=== PATIENT | female | born 1980 | race Caucasian/White ===

== ENCOUNTER 2016-12-28 18:13 | Emergency (ER) | payer SELFPAY ==
[~2016-12-28] VITALS: Ht 167.6 cm; Wt 49.9 kg
[~2016-12-28 18:13] MED LIST: ACET-2222 PO; ALPR.5T PO; AMOX500C2 PO; BSP10T PO; HYDR-3720 PO; HYDR-3874 PO; HYDR1CAP2 PO; IBP800T PO; LIDO20SO20 PO; MIRT30TA19 PO; MIRT45TA5 PO; NAPR-243 PO; ONDA4TAB8 PO; PENI500T PO; PRM25T PO; SULF1TAB38 PO; TRM50T PO
--- OUTSIDE RECORDS SUMMARY | 2016-12-28 18:19 | XMS REPORT | Continuity of Care Document ---
Author Author [facility] Organization [facility] Address Unknown Phone Unavailable Care Team Providers Care Linseed Oil Temperer Name Role Phone [facility] PCP Insurance Providers Payer Name Policy Number Subscriber Name Relationship Self Pay Arturo Pritchard 18 Self / Same As Patient Advance Directives Directive Response Recorded Date/Time Advance Directives Yes 07/07/14 10:16pm Health Care Power of Insurance Account Manager No 07/07/14 10:16pm Organ Donor No 07/07/14 10:16pm Resuscitation Status Full Code 07/07/14 10:16pm Problems Medical Problems Problem Onset Date Status Abdominal pain Unknown Active Nausea and vomiting Unknown Active Thrombophlebitis Unknown Active Anxiety Unknown Active Medications Medication Dose Route Sig Days/Qty Instructions Order Date Discontinued Date Status Naproxen 1 Each PO TID PRN 20 Qty FOR PAIN 05/13/11 09/10/11 Discontinued Penicillin V Potassium 1 Tab PO FOUR TIMES DAILY 40 Qty 05/13/1109/10 Discontinued Tramadol HCl 50 Mg PO Q4-6HOURS PRN 20 Qty FOR PAIN 05/13/11 09/10/11 Discontinued Amoxicillin 1 Each PO THREE TIMES A DAY 09/10/11 11/26/12 Discontinued Acetaminophen/Hydrocodone Bitart (Lorcet-Hd) 1 - 2 Each PO Q 4 - 6 HRS PRN 09/10/11 11/26/12 Discontinued Ibuprofen 800 Mg PO GIVE EVERY 6 HR ON SCHEDULE 20 Qty 10/14/11 12/30/ 12 Discontinued Lidocaine Hcl 20 Ml PO NEEDED 1 Qty 09/10/11 11/26/12 Discontinued Mirtazapine (Remeron) 1 Each PO BEDTIME 11/26/12 Active Alprazolam 1 Tab PO QID PRN 11/26/12 Active Amoxicillin 2 Each PO THREE TIMES A DAY 10 Days 11/26/12 07/14/13 Discontinued Acetaminophen/Codeine 1 Tab PO EVERY 4HRS PRN 10 Qty 11/26/12 Discontinued Mirtazapine 1 Each PO BEDTIME 07/14/13 07/14/13 Discontinued Buspirone HCl 3 Tab PO TWICE A DAY 90 Qty 07/14/13 12/13/13 Discontinued Acetaminophen/Hydrocodone Bitart 1 Ea PO Q 4 - 6 HRS PRN 14 Qty 10/29/13 Discontinued Acetaminophen/Hydrocodone Bitart 1 Ea PO Q 4 - 6 HRS PRN 20 Qty 10/29/13 Discontinued Promethazine HCl 1 Tab PO FOUR TIMES DAILY PRN NAUSEA 20 Qty 10/29/13 12/13/13 Discontinued Trimethoprim/Sulfamethoxazole 1 Ea PO TWICE A DAY 14 Qty FOR INFECTION 07/07/14 Discontinued Social History Social History Problem Response Recorded Date/Time Alcohol Use Denies Use 07/07/2014 10:16pm Recreational Drug Use No 07/07/2014 10:16pm Smoking Status Current Everyday Smoker 07/07/2014 10:16pm Query Response Start Date Stop Date Smoking Status Current Everyday Smoker Hospital Discharge Instructions No hospital discharge instructions. Plan of Care No plan of care. Functional Status No functional status results. Allergies, Adverse Reactions, Alerts Allergen Type Severity Reaction Status Last Updated tramadol HCl Adverse Reaction Mild vomiting Active 09/10/11 naproxen ([id number]) Adverse Reaction Mild vomiting Active 09/10/11 Immunizations No immunization records. Vital Signs Acute Vital Signs Vital Response Date/Time Temperature (Fahrenheit) 98.0 degrees F (97.6 - 99.5) Temperature (Calculated Celsius) 36.34038 degrees C (36.4 - 37.5) Temperature Source Temporal Pulse Rate (adult) 69 bpm (60 - 90) Respiratory Rate 18 bpm (12 - 24) O2 Sat by Pulse Oximetry 98 % (88 - 100) Blood Pressure 115/67 mm Hg Pain Pain Intensity 0 Height (Feet) 5 feet Height (Inches) 4 inches Height (Calculated Centimeters) 162.907745 cm Weight (Pounds) 105 pounds Weight (Calculated Kilograms) 47.617223 kilograms Calculated BMI 18.02 Results Test Source Date Result Interp. Ref. Range Comments Alanine Aminotransferase (ALT/SGPT) October 29, 2013 11:25am 18 U/L L 30-65 Albumin October 29, 2013 11:25am 4.2 G/DL N 3.4-5.0 Alkaline Phosphatase October 29, 2013 11:25am 127 U/L N 50-136 Amylase Level October 29, 2013 11:25am 68 U/L N 25-115 Aspartate Amino Transf (AST/SGOT) October 29, 2013 11:25am 15 U/L N 15- 37 Atypical Lymphocytes October 29, 2013 11:25am 5 % - BUN/Creatinine Ratio October 29, 2013 11:25am 9 - Band Neutrophils October 29, 2013 11:25am 1 % - Basophils # (Auto) October 29, 2013 11:25am 0.0 10^3/uL N 0.0-0.1 Basophils % (Manual) October 29, 2013 11:25am 0 % - Basophils (%) (Auto) October 29, 2013 11:25am 0 % N 0-10 Blood Urea Nitrogen October 29, 2013 11:25am 9 MG/DL N 7-18 Calcium Level October 29, 2013 11:25am 9.4 MG/DL N 8.5-10.1 Carbon Dioxide Level October 29, 2013 11:25am 23 MMOL/L N 21-32 Chloride Level October 29, 2013 11:25am 106 MMOL/L N 101-110 Creatinine October 29, 2013 11:25am 1.0 MG/DL N 0.6-1.3 Eosinophils # (Auto) October 29, 2013 11:25am 0.0 10^3/uL N 0.0-0.3 Eosinophils % (Manual) October 29, 2013 11:25am 0 % - Eosinophils (%) (Auto) October 29, 2013 11:25am 0 % N 0-10 Glucose Level October 29, 2013 11:25am 122 MG/DL H 74-106 Hematocrit October 29, 2013 11:25am 46 % N 35-52 Hemoglobin October 29, 2013 11:25am 16.3 G/DL H 11.5-16.0 Lipase October 29, 2013 11:25am 100 U/L N 73-393 Lymphocytes # (Auto) October 29, 2013 11:25am 1.5 X 10^3 N 1.0-4.0 Lymphocytes % (Manual) October 29, 2013 11:25am 7 % - Lymphocytes (%) (Auto) October 29, 2013 11:25am 7 % L 12-44 Magnesium Level October 29, 2013 11:25am 1.9 MG/DL N 1.8-2.4 Mean Corpuscular Hemoglobin October 29, 2013 11:25am 32 PG N 25-34 Mean Corpuscular Hemoglobin Concent October 29, 2013 11:25am 36 G/DL N 32-36 Mean Corpuscular Volume October 29, 2013 11:25am 90 FL N 80-99 Mean Platelet Volume October 29, 2013 11:25am 10.4 FL N 7.4-10.4 Monocytes # (Auto) October 29, 2013 11:25am 0.7 X 10^3 N 0.0-1.0 Monocytes % (Manual) October 29, 2013 11:25am 1 % - Monocytes (%) (Auto) October 29, 2013 11:25am 3 % N 0-12 Neutrophils # (Auto) October 29, 2013 11:25am 18.7 X 10^3 H 1.8-7.8 Neutrophils % (Manual) October 29, 2013 11:25am 86 % - Neutrophils (%) (Auto) October 29, 2013 11:25am 89 % H 42-75 Platelet Count October 29, 2013 11:25am 252 10^3/uL N 130-400 Potassium Level October 29, 2013 11:25am 3.8 MMOL/L N 3.6-5.0 Red Blood Count October 29, 2013 11:25am 5.11 10^6/uL N 4.35-5.85 Red Cell Distribution Width October 29, 2013 11:25am 13.3 % N 10.0- 14.5 Serum Test, Qualitative October 29, 2013 11:25am NEGATIVE - Sodium Level October 29, 2013 11:25am 140 MMOL/L N 135-145 Total Bilirubin October 29, 2013 11:25am 0.6 MG/DL N 0.0-1.0 Total Protein October 29, 2013 11:25am 8.1 G/DL N 6.4-8.2 Urine Bacteria October 29, 2013 1:12pm NEGATIVE /HPF - Has specimen been collected/obtained? YSpecimen Description CLEAN CATCH Urine Bilirubin October 29, 2013 1:12pm NEGATIVE - Has specimen been collected/obtained? YSpecimen Description CLEAN CATCH Urine Casts October 29, 2013 1:12pm NONE /LPF - Has specimen been collected/obtained? YSpecimen Description CLEAN CATCH Urine Clarity October 29, 2013 1:12pm CLEAR - Has specimen been collected/obtained? YSpecimen Description CLEAN CATCH Urine Color October 29, 2013 1:12pm YELLOW - Has specimen been collected/obtained? YSpecimen Description CLEAN CATCH Urine Crystals October 29, 2013 1:12pm NONE /LPF - Has specimen been collected/obtained? YSpecimen Description CLEAN CATCH Urine Culture Indicated October 29, 2013 1:12pm NO - Has specimen been collected/obtained? YSpecimen Description CLEAN CATCH Urine Glucose (UA) October 29, 2013 1:12pm 4+ H - Has specimen been collected/obtained? YSpecimen Description CLEAN CATCH Urine Ketones October 29, 2013 1:12pm 2+ H - Has specimen been collected/obtained? YSpecimen Description CLEAN CATCH Urine Leukocyte Esterase October 29, 2013 1:12pm 1+ H - Has specimen been collected/obtained? YSpecimen Description CLEAN CATCH Urine Mucus October 29, 2013 1:12pm SMALL /LPF H - Has specimen been collected/obtained? YSpecimen Description CLEAN CATCH Urine Nitrite October 29, 2013 1:12pm NEGATIVE - Has specimen been collected/obtained? YSpecimen Description CLEAN CATCH Urine Protein October 29, 2013 1:12pm NEGATIVE - Has specimen been collected/obtained? YSpecimen Description CLEAN CATCH Urine RBC October 29, 2013 1:12pm RARE /HPF - Has specimen been collected/obtained? YSpecimen Description CLEAN CATCH Urine Specific [place] October 29, 2013 1:12pm 1.010 L - Has specimen been collected/obtained? YSpecimen Description CLEAN CATCH Urine Squamous Epithelial Cells October 29, 2013 1:12pm 5-10 /HPF - Has specimen been collected/obtained? YSpecimen Description CLEAN CATCH Urine Urobilinogen October 29, 2013 1:12pm NORMAL MG/DL - Has specimen been collected/obtained? YSpecimen Description CLEAN CATCH Urine WBC October 29, 2013 1:12pm RARE /HPF - Has specimen been collected/obtained? YSpecimen Description CLEAN CATCH Urine pH October 29, 2013 1:12pm 6 - Has specimen been collected/ obtained? YSpecimen Description CLEAN CATCH White Blood Count October 29, 2013 11:25am 20.9 10^3/uL H 4.3-11.0 Estimat Glomerular Filtration Rate October 29, 2013 11:25am > 60 - GFR INTERPRETIVE DATA UNITS FOR ESTIMATED GFR (eGFR): mL/min/1.73 M2 REFERENCE RANGE FOR ESTIMATED GFR (eGFR) eGFR NORMAL eGFR >60 MODERATELY DECREASED eGFR 30-59 SEVERLY DECREASED eGFR 15-29 KIDNEY FAILURE <15 (OR DIALYSIS) Blood Morphology Comment October 29, 2013 11:25am NORMAL - Urine RBC (Auto) October 29, 2013 1:12pm 1+ H - Has specimen been collected/obtained? YSpecimen Description CLEAN CATCH Procedures No known history of procedures. Encounters Encounter Location Date/Time Departed Emergency Room [facility] 07/07/14 10:07pm Recent Diagnosis
[2016-12-28] MEDS ORDERED: RX-ONDANSETRON 4 MG ODT (ZOFRAN) PPK #4 PO STA (18:58)
--- NOTE | 2016-12-28 18:58 | ED EENT ---
History of Present Illness General Chief Complaint: Dental Problems/Pain Stated Complaint: POST DENTAL OP/PAIN/VOMITING Nursing Triage Note: C/O DENTAL PAIN WITN NAUSEA. PT HAD SIX TEETH PULLED AT [facility] TODAY. PT THINKS THE HYDROCODONE PRESCRIBED IS MAKING HER SICK. Source: patient History of Present Illness Time seen by provider: 18:32 Initial Comments PT STATES SHE HAD 6 LOWER TEETH PULLED THIS AFTER NOON AT [facility] WAS OUT OF CLINIC BY 1545, AND FILLED RX FOR HYDROCODONE AND TOOK FIRST ONE AT 1615 STATES THE HYDROCODONE IS MAKING HER SICK AND HAS VOMITED X 2 SINCE TAKING IT. SHE STATES SHE HAS TAKEN IT BEFORE AND IT MADE HER SICK THEN ALSO--SHE STATES " I CAN'T TAKE THEM" PT DOES NOT HAVE THE GAUZE ON GUMS SHE WAS INSTRUCTED TO DO, AND IS HAVING SOME MILD DIFFUSE OOZING OF BLOOD FROM GUMS HAD 4 OTHER LOWER TEETH REMOVED 2 WEEKS AGO AND WAS NOT GIVEN ANYTHING FOR PAIN AT THAT TIME--SHE STATES THAT WAS NOT BAD, BECAUSE "THEY DIDN'T HAVE TO DIG ANY OF THOSE OUT LIKE THEY DID TODAY" PT STATES SHE "CAN'T TAKE NSAIDS BECAUSE THEY DO THE SAME THING" AND STATES "ULTRAM NEVER WORKS" AND "WANTS SOMETHING ELSE" FOR PAIN PCP:[facility] Allergies and Home Medications Allergies Coded Allergies: naproxen (Verified Adverse Reaction, Mild, vomiting, 09/10/11) tramadol HCl (Verified Adverse Reaction, Mild, vomiting, 09/10/11) Home Medications Alprazolam 0.5 Mg Tablet 1 TAB PO QID PRN (Reported) Hydrocodone/Acetaminophen 1 Each Tablet #15 1-2 EACH PO Q4H PRN PRN PAIN Prescribed by: KATHY BROWN on 10/10/152003 Ondansetron 4 Mg Tab.rapdis #8 4 MG PO Q4H PRN PRN NAUSEA Prescribed by: KATHY BROWN on 10/10/152003 Ondansetron 4 Mg Tab.rapdis #10 4 MG PO Q4H Prescribed by: AMY KEE on 12/28/16 1901 Review of Systems Constitutional: no symptoms reported Mouth: see HPI Gastrointestinal: see HPINo abdominal pain, nausea vomiting : No (HAS HAD BTL AND ENDOMETRIAL ABLATION) LMP: Nov 26, 2016 Neurological: No Symptoms Reported Past [id number]-[id number]-Tzbdwg Hx Patient Social History Alcohol Use: Occasionally Uses Recreational Drug Use: No (DENIES USE) Smoking Status: Current Everyday Smoker (1 PPD) Recent Foreign Travel: No Contact w/Someone Who Travel: No Recent Infectious Disease Expo: No Recent Hopitalizations: No Surgeries HX Surgeries: Yes (ENDOMETRIAL ABLATION) Surgeries: Gallbladder, Tubal Ligation Respiratory Hx Respiratory Disorders: No Cardiovascular Hx Cardiac Disorders: No Neurological Hx Neurological Disorders: No Reproductive System : No Hx Reproductive Disorders: Yes (S/P ENDOMETRIAL ABLATION) Female Reproductive Disorders: Menstrual Problems PM HEAD COOK History: Tubal Ligation Genitourinary Hx Genitourinary Disorders: No Gastrointestinal Hx Gastrointestinal Disorders: No Musculoskeletal Hx Musculoskeletal Disorders: Yes Musculoskeletal Disorders: Fractures Endocrine Hx Endocrine Disorders: No HEENT HX ENT Disorders: Yes (POOR DENTITION) Cancer Hx Cancer: No Psychosocial Hx Psychiatric Problems: Yes Behavioral Health Disorders: Sleep Difficulties, Anxiety, PTSD, Depression Integumentary HX Skin/Integumentary Disorder: No Blood Transfusions Hx Blood Disorders: No Physical Exam Vital Signs Vital Sign - Last 12Hours 12/28/16 18:33 Temp 98.5 Pulse 70 Resp 16 B/P 144/106 Pulse Ox 98 O2 Delivery Ambu-Bag General Appearance: WD/WN no apparent distress other (CONSTANTLY SPITTING OUT SALIVA MIXED WITH BLOOD, SOMEWHAT DRAMATIC) Eyes: bilateral eye EOMI, bilateral eye PERRL Nose: normal inspection Mouth/Throat: other (NO REMAINING TEETH ON LOWER GUMS. SITE OF EXTRACTIONS 2 WEEKS AGO ON THE RIGHT ARE ALL HEALING WELL WITHOUT SIGNS OF INFECTION. EXTRACTION SITES ON LEFT FROM TODAY ALL WITH MILD OOZING OF BLOOD. REMAINING TOP TEETH ALL WITH VARYING DEGREES OF DECAY) Neck: normal inspection Cardiovascular: regular rate, rhythm no murmur Respiratory: normal breath sounds Neurologic/Psychiatric: employee training specialist II-XII nml as tested no motor/sensory deficits alert oriented x 3 Skin: normal color warm/dry tattoos/piercings Progress/Results/Core Measures Results/Orders My Orders Orders-AMY KEE DO Ondansetron Oral Dissolve Tab (Zofran (12/28/16 19:00) Ketorolac Injection (Toradol Injection) (12/28/16 19:00) Rx-Ondansetron Po (Rx-Zofran Po) (12/28/16 18:58) Medications Given in ED Current Medications Medications Dose Ordered Sig/Santino Route Start Time Stop Time Status Last Admin Dose Admin Ketorolac Tromethamine 60 mg ONCE ONCE IM 12/28/16 19:00 12/28/16 19:01 DC 12/28/16 19:07 60 MG Ondansetron HCl 8 mg ONCE ONCE PO 12/28/16 19:00 12/28/16 19:01 DC 12/28/16 19:07 8 MG Vital Signs/I&O Vital Sign - Last 12Hours 12/28/16 12/28/16 12/28/16 18:33 19:07 19:15 Temp 98.5 98.5 98.5 Pulse 70 70 Resp 16 16 B/P 144/106 Pulse Ox 98 98 O2 Delivery Ambu-Bag Blood Pressure Mean: 119 Progress Note : Progress Note ADVISED PT THAT I WOULD GIVE HER NAUSEA MEDICATION SO SHE COULD HOPEFULLY TOLERATE HER PAIN MEDICATION, SHE HAS REPORTED THAT SHE CANNOT TAKE ULTRAM OR ORAL NSAIDS GIVEN SHOT OF TORADOL AND ZOFRAN ODT WITH IMPROVEMENT IN PAIN AND EASING OF NAUSEA. NO VOMITING DURING ER STAY PT ADVISED TO REPLACE GAUZE ON EXTRACTION SITES TO REDUCE BLEEDING WELL REDUCE PAIN Departure Impression Impression: Primary Impression: NAUSEA AND VOMITING DUE TO MEDICATION Additional Impression: POST DENTAL EXTRACTION PAIN Disposition: 01 HOME, SELF-CARE Condition: Stable Departure-Patient Inst. Referrals: [facility] (PCP/Family) Primary Care Physician Patient Instructions: Dental Pain (DC), Postoperative Pain (DC) Add. Discharge Instructions: FOLLOW ALL INSTRUCTIONS GIVEN TO YOU BY DENTIST FOLLOW UP WITH [facility] TOMORROW FOR FURTHER CARE All discharge instructions reviewed with patient and/or family. Voiced understanding. Scripts Ondansetron (Zofran Odt)4 Mg Tab.rapdis4 Mg PO Q4H Nausea/Vomiting #10 TAB Prov:AMY KEE DO 12/28/16 AMY KEE DO Dec 28, 2016 18:58
[2016-12-28] MEDS ORDERED: KETOROLAC 60 MG/2 ML VIAL IM ONE (19:00)
[2016-12-28] MEDS ORDERED: ONDANSETRON 4 MG (ZOFRAN) ORAL DISSOLVE TAB PO ONE (19:00)
[2016-12-28] MEDS ORDERED: ONDA4TAB8 PO (19:01)
[2016-12-28 19:15] VITALS: BP 132/90
== END 2016-12-28 19:15 | disposition home or self-care (01) ==
LOC: EDUNIT# 18:13 → ER 18:15
DX: R11.2 Nausea with vomiting, unspecified (principal); K08.409 Partial loss of teeth, unspecified cause, unspecified class; Z98.890 Other specified postprocedural states; F17.210 Nicotine dependence, cigarettes, uncomplicated
CPT/HCPCS: 96372; 99282

== ENCOUNTER 2018-06-18 17:14 | Emergency (ER) | payer SELFPAY ==
[~2018-06-18] VITALS: Ht 162.6 cm; Wt 49.9 kg
[~2018-06-18 17:14] MED LIST changes: +HYDR-3870 PO; -HYDR-3874 PO
--- OUTSIDE RECORDS SUMMARY | 2018-06-18 18:09 | XMS REPORT ---
Author Author ADRIANA ABBASI [facility] Address Unknown Care Team Providers Care Speech Communication Instructor Name Role Phone ADRIANA ABBASI Unavailable PROBLEMS Type Condition ICD9-CM Code UGF19-QU Code Onset Dates Condition Status SNOMED Code Problem Dental examination Z01.20 Active 306937130 Problem Weight loss R63.4 Active 711787311 Problem Gingivitis K05.10 Active 01988421 Problem Constipation, unspecified constipation type K59.00 Active 37109164 ALLERGIES No Information SOCIAL HISTORY Never Assessed PLAN OF CARE Activity Details Follow Up prn Reason:TE REMAINING UPPER TEETH VITAL SIGNS MEDICATIONS Unknown Medications RESULTS No Results PROCEDURES Procedure Date Ordered Result Body Site Dental no charge Dec 30, 2016 IMMUNIZATIONS No Known Immunizations MEDICAL (GENERAL) HISTORY Type Description Date Medical History PTSD Medical History anxiety Surgical History tubal ligation Surgical History cholecystectomy
--- OUTSIDE RECORDS SUMMARY | 2018-06-18 18:09 | XMS REPORT ---
Author Author ADRIANA ABBASI [facility] Address Unknown Care Team Providers Care Auto Engine Mechanic Name Role Phone ADRIANA ABBASI Unavailable PROBLEMS Type Condition ICD9-CM Code [id number] Code Onset Dates Condition Status SNOMED Code Problem Dental examination Z01.20 Active 985616095 Problem Weight loss R63.4 Active 295077749 Problem Gingivitis K05.10 Active 38413704 Problem Constipation, unspecified constipation type K59.00 Active 58558397 ALLERGIES Substance Reaction Event Type Date Status naproxen Unknown Non Drug Allergy Nov, Active SOCIAL HISTORY No smoking Hx information available PLAN OF CARE VITAL SIGNS MEDICATIONS Unknown Medications RESULTS No Results PROCEDURES Procedure Date Ordered Related Diagnosis Body Site Dental no charge Dec 23, 2016 IMMUNIZATIONS No Known Immunizations
--- OUTSIDE RECORDS SUMMARY | 2018-06-18 18:09 | XMS REPORT ---
Author Author ADRIANA ABBASI Organization [facility] Address Unknown Care Team Providers Care Roller Skater Name Role Phone ADRIANA ABBASI Unavailable PROBLEMS Type Condition ICD9-CM Code QXC87-UI Code Onset Dates Condition Status SNOMED Code Problem Dental examination Z01.20 Active 052569958 Problem Weight loss R63.4 Active 004973994 Problem Gingivitis K05.10 Active 90155459 Problem Constipation, unspecified constipation type K59.00 Active 91225269 ALLERGIES Substance Reaction Event Type Date Status naproxen Unknown Non Drug Allergy Dec, Active SOCIAL HISTORY Never Assessed PLAN OF CARE Activity Details Follow Up prn Reason:te remaining uppers VITAL SIGNS Blood pressure systolic 121 mmHg 2017-01-04 Blood pressure diastolic 83 mmHg 2017-01-04 MEDICATIONS Medication Instructions Dosage Frequency Start Date End Date Duration Status Zofran ODT 8 mg take 1 tablet by Oral route every 8 hoursPRNPlace on tongue and allow to dissolve. Oct, Active Hydrocodone-Acetaminophen 10-325 mg take 1 tablet by Oral route 2 times per day as needed for pain for 15 PRN Jun, Active Mirtazapine 30 mg 1.5 Tablet by Oral route 1 time per day Oct, Active Xanax 0.5 mg 1 Tablet by Oral route 4 times per day Oct, Active Bowman 5-325 MG Orally every 6 hrs 1 tablet as needed 6h 4 days Active Motrin 800 mg Orally 3 times a day prn rib pain 1 tablet May, Active RESULTS No Results PROCEDURES Procedure Date Ordered Result Body Site TX COMPS - UNUSUL CIRCUMSTANCES RPT Jan 04, 2017 IMMUNIZATIONS No Known Immunizations MEDICAL (GENERAL) HISTORY Type Description Date Medical History PTSD Medical History anxiety Surgical History tubal ligation Surgical History cholecystectomy
--- OUTSIDE RECORDS SUMMARY | 2018-06-18 18:09 | XMS REPORT ---
Author Author ALICIA Castano [facility] Address Unknown Care Team Providers Care Auto Specialty Services Manager Name Role Phone ALICIA Castano Unavailable PROBLEMS Type Condition ICD9-CM Code ERJ13-DO Code Onset Dates Condition Status SNOMED Code Problem Dental examination Z01.20 Active 294985582 Problem Weight loss R63.4 Active 545181569 Problem Gingivitis K05.10 Active 65943034 Problem Constipation, unspecified constipation type K59.00 Active 67195367 ALLERGIES Substance Reaction Event Type Date Status naproxen Unknown Non Drug Allergy Sep, Active SOCIAL HISTORY No smoking Hx information available PLAN OF CARE Activity Details Follow Up prn Reason:te VITAL SIGNS Height 66 in 2016-10-20 Blood pressure systolic 113 mmHg 2016-10-20 Blood pressure diastolic 44 mmHg 2016-10-20 MEDICATIONS Unknown Medications RESULTS No Results PROCEDURES Procedure Date Ordered Related Diagnosis Body Site COMP ORAL EVALUATION - NEW/EST PT Oct 20, 2016 PANORAMIC FILM SEE ALSO CODE 20433 Oct 20, 2016 EXTRAC ERUPTED TOOTH/EXPOSED ROOT Oct 20, 2016 IMMUNIZATIONS No Known Immunizations
--- OUTSIDE RECORDS SUMMARY | 2018-06-18 18:09 | XMS REPORT ---
Author Author DELONTE HERR Organization [facility] Address [address] [place] [address] Care Team Providers Care Pediatric Intensive Physician Name Role Phone DELONTE HERR Unavailable PROBLEMS Type Condition ICD9-CM Code XGG95-EP Code Onset Dates Condition Status SNOMED Code Problem Dental examination Z01.20 Active 562476268 Problem Weight loss R63.4 Active 663814787 Problem Gingivitis K05.10 Active 50239080 Problem Constipation, unspecified constipation type K59.00 Active 11057425 ALLERGIES Substance Reaction Event Type Date Status naproxen Unknown Non Drug Allergy Jan, Active SOCIAL HISTORY Never Assessed PLAN OF CARE Activity Details Follow Up prn Reason: VITAL SIGNS Height 66 in 2017-02-07 Weight 107.8 lbs 2017-02-07 Temperature 98.2 degrees Fahrenheit 2017-02-07 Heart Rate 88 bpm 2017-02-07 Respiratory Rate 18 2017-02-07 BMI 17.40 kg/m2 2017-02-07 Blood pressure systolic 113 mmHg 2017-02-07 Blood pressure diastolic 68 mmHg 2017-02-07 MEDICATIONS Unknown Medications RESULTS No Results PROCEDURES No Known procedures IMMUNIZATIONS No Known Immunizations MEDICAL (GENERAL) HISTORY Type Description Date Medical History PTSD Medical History anxiety Surgical History tubal ligation Surgical History cholecystectomy
--- OUTSIDE RECORDS SUMMARY | 2018-06-18 18:09 | XMS REPORT ---
Author Author ALICIA Castano [facility] Address Unknown Care Team Providers Care 1St Pressman Name Role Phone ALICIA Castano Unavailable PROBLEMS Type Condition ICD9-CM Code XWT61-ES Code Onset Dates Condition Status SNOMED Code Problem Dental examination Z01.20 Active 474672268 Problem Weight loss R63.4 Active 729404516 Problem Gingivitis K05.10 Active 81972312 Problem Constipation, unspecified constipation type K59.00 Active 91140544 ALLERGIES Substance Reaction Event Type Date Status naproxen Unknown Non Drug Allergy Nov, Active SOCIAL HISTORY No smoking Hx information available PLAN OF CARE Activity Details Follow Up prn Reason:multi te VITAL SIGNS Height 66 in 2016-12-14 Blood pressure systolic 112 mmHg 2016-12-14 Blood pressure diastolic 68 mmHg 2016-12-14 MEDICATIONS Unknown Medications RESULTS No Results PROCEDURES Procedure Date Ordered Related Diagnosis Body Site EXTRAC ERUPTED TOOTH/EXPOSED ROOT Dec 14, 2016 EXTRAC ERUPTED TOOTH/EXPOSED ROOT Dec 14, 2016 EXTRAC ERUPTED TOOTH/EXPOSED ROOT Dec 14, 2016 EXTRAC ERUPTED TOOTH/EXPOSED ROOT Dec 14, 2016 EXTRAC ERUPTED TOOTH/EXPOSED ROOT Dec 14, 2016 EXTRAC ERUPTED TOOTH/EXPOSED ROOT Dec 14, 2016 IMMUNIZATIONS No Known Immunizations
--- OUTSIDE RECORDS SUMMARY | 2018-06-18 18:09 | XMS REPORT ---
Author Author JOSE ALEJANDRO STEEN Organization [employer] Address Unknown Phone Unavailable Care Team Providers Care Valve Fitter Name Role Phone JOSE ALEJANDRO STEEN CP Unavailable Allergies, Adverse Reactions, Alerts Substance Reaction Event Type N.K.D.A. Info Not Available Non Drug Allergy Problems Problem Type Condition Code Onset Dates Condition Status Problem Fever, unspecified 780.60 Active Problem Nausea with vomiting 787.01 Active Problem Intestinal infection due to other organism, NEC 008.8 Active Assessment Open fracture of tooth, initial encounter S02.5XXB Active Problem Closed fracture of lateral malleolus 824.2 Active Assessment Tooth pain K08.89 Active Medications Medication Code System Code Instructions Start Date End Date Status Dosage Clindamycin HCl [facility] [address]-07 300 MG Orally every 8 hrs Sep 23, 2016 Oct 03, 2016 1 capsules [place] [facility] [address]-02 5-325 MG Orally every 6 hrs Sep 23, 2016 Oct 07, 2016 1 tablet as needed for tooth pain Motrin [facility] [address]-39 800 mg Orally 3 times a day prn rib pain June 16, 2015 1 tablet Xanax [facility] [address]-42 0.5 mg Nov 17, 2012 1 Tablet by Oral route 4 times per day Procedures Procedure Coding System Code Date Office Visit, Est Pt., Level 3 CPT-4 79538 Sep 23, 2016 Vital Signs Date/Time: Sep 23, 2016 Cardiac Monitoring Heart Rate 80 bpm Weight 110 lbs Height 66 in BMI 17.75 Index Blood Pressure Diastolic 74 mmHg Blood Pressure Systolic 102 mmHg Results No Known Results Summary Purpose [employer] Submission
--- OUTSIDE RECORDS SUMMARY | 2018-06-18 18:09 | XMS REPORT ---
Author Author ADRIANA ABBASI Organization [facility] Address Unknown Care Team Providers Care Motor Equipment Captain Name Role Phone ADRIANA ABBASI Unavailable PROBLEMS Type Condition ICD9-CM Code [id number] Code Onset Dates Condition Status SNOMED Code Problem Dental examination Z01.20 Active 758612199 Problem Weight loss R63.4 Active 996655123 Problem Gingivitis K05.10 Active 54693843 Problem Constipation, unspecified constipation type K59.00 Active 45680887 ALLERGIES Substance Reaction Event Type Date Status naproxen Unknown Non Drug Allergy Nov, Active SOCIAL HISTORY No smoking Hx information available PLAN OF CARE Activity Details Follow Up 1 Week Reason:Dry socket follow-up/Suture removal. PA will most likely need to be taken at next visit. VITAL SIGNS Height 66 in 2016-12-16 Blood pressure systolic 126 mmHg 2016-12-16 Blood pressure diastolic 89 mmHg 2016-12-16 MEDICATIONS Medication Instructions Dosage Frequency Start Date End Date Duration Status Critz 5-325 MG Orally every 6 hrs 1 tablet as needed 6h 4 days Active Azithromycin 250 MG Orally Once a day 2 tablets on the first day, then 1 tablet daily for 4 days 24h Nov, 24 Nov, 2016 5 day(s) Active RESULTS No Results PROCEDURES Procedure Date Ordered Related Diagnosis Body Site LTD ORAL EVALUATION - PROBLEM FOCUS Dec 16, 2016 INTRAORL-PERIAPICAL 1 FILM 97555 Dec 16, 2016 IMMUNIZATIONS No Known Immunizations
--- OUTSIDE RECORDS SUMMARY | 2018-06-18 18:09 | XMS REPORT ---
Author Author ALICIA Castano [facility] Address Unknown Care Team Providers Care Food Production Machine Operator Name Role Phone tamikoMeghaALICIA GRAY Unavailable PROBLEMS Type Condition ICD9-CM Code KBG46-IK Code Onset Dates Condition Status SNOMED Code Problem Dental examination Z01.20 Active 466162464 Problem Weight loss R63.4 Active 122324055 Problem Gingivitis K05.10 Active 93980198 Problem Constipation, unspecified constipation type K59.00 Active 01269499 ALLERGIES Substance Reaction Event Type Date Status naproxen Unknown Non Drug Allergy Nov, Active SOCIAL HISTORY No smoking Hx information available PLAN OF CARE Activity Details Follow Up prn Reason:1.5 hr multi te VITAL SIGNS Height 66 in 2016-12-28 Blood pressure systolic 110 mmHg 2016-12-28 Blood pressure diastolic 68 mmHg 2016-12-28 MEDICATIONS Medication Instructions Dosage Frequency Start Date End Date Duration Status [place] 5-325 MG Orally every 6 hrs 1 tablet as needed 6h 4 days Active [place] 5-325 MG Orally every 6 hrs 1 tablet as needed 6h Nov, 4 Dec 4 days Active Zofran ODT 8 mg take 1 tablet by Oral route every 8 hoursPRNPlace on tongue and allow to dissolve. Oct, Active Xanax 0.5 mg 1 Tablet by Oral route 4 times per day Oct, Active Mirtazapine 30 mg 1.5 Tablet by Oral route 1 time per day Oct, Active Hydrocodone-Acetaminophen 10-325 mg take 1 tablet by Oral route 2 times per day as needed for pain for 15 PRN Jun, Active Motrin 800 mg Orally 3 times a day prn rib pain 1 tablet May, Active RESULTS No Results PROCEDURES Procedure Date Ordered Related Diagnosis Body Site EXTRAC ERUPTED TOOTH/EXPOSED ROOT Dec 28, 2016 EXTRAC ERUPTED TOOTH/EXPOSED ROOT Dec 28, 2016 EXTRAC ERUPTED TOOTH/EXPOSED ROOT Dec 28, 2016 EXTRAC ERUPTED TOOTH/EXPOSED ROOT Dec 28, 2016 EXTRAC ERUPTED TOOTH/EXPOSED ROOT Dec 28, 2016 EXTRAC ERUPTED TOOTH/EXPOSED ROOT Dec 28, 2016 IMMUNIZATIONS No Known Immunizations
--- OUTSIDE RECORDS SUMMARY | 2018-06-18 18:09 | XMS REPORT ---
Author Author ADRIANA ABBASI [facility] Address Unknown Care Team Providers Care Flash Developer Name Role Phone ADRIANA ABBASI Unavailable PROBLEMS Type Condition ICD9-CM Code KCB95-TB Code Onset Dates Condition Status SNOMED Code Problem Dental examination Z01.20 Active 905815588 Problem Weight loss R63.4 Active 041058181 Problem Gingivitis K05.10 Active 62954225 Problem Constipation, unspecified constipation type K59.00 Active 33107891 ALLERGIES Substance Reaction Event Type Date Status naproxen Unknown Non Drug Allergy Dec, Active SOCIAL HISTORY Never Assessed PLAN OF CARE Activity Details Follow Up 6-8 Weeks Reason:complete denture impressions VITAL SIGNS Blood pressure systolic 109 mmHg 2017-01-13 Blood pressure diastolic 78 mmHg 2017-01-13 MEDICATIONS Medication Instructions Dosage Frequency Start Date End Date Duration Status Motrin 800 mg Orally 3 times a day prn rib pain 1 tablet May, Active [place] 5-325 MG Orally every 6 hrs 1 tablet as needed 6h 4 days Active Hydrocodone-Acetaminophen 10-325 mg take 1 tablet by Oral route 2 times per day as needed for pain for 15 PRN Jun, Active Mirtazapine 30 mg 1.5 Tablet by Oral route 1 time per day Oct, Active Valium 5 MG Orally 2 TABLETS 1 HR BEFORE APPOINTMENT 2 TABLETS THE NIGHT BEFORE TREATMENT Dec, Active Xanax 0.5 mg 1 Tablet by Oral route 4 times per day Oct, Active Zofran ODT 8 mg take 1 tablet by Oral route every 8 hoursPRNPlace on tongue and allow to dissolve. Oct, Active Acetaminophen-Codeine #3 300-30 MG Orally every 6 hrs 1 tablet as needed 6h Dec, Dec, 4 days Active RESULTS No Results PROCEDURES Procedure Date Ordered Result Body Site EXTRAC ERUPTED TOOTH/EXPOSED ROOT Jan 13, 2017 EXTRAC ERUPTED TOOTH/EXPOSED ROOT Jan 13, 2017 INTRAORL-PERIAPICAL 1 FILM 38513 Jan 13, 2017 EXTRAC ERUPTED TOOTH/EXPOSED ROOT Jan 13, 2017 EXTRAC ERUPTED TOOTH/EXPOSED ROOT Jan 13, 2017 EXTRAC ERUPTED TOOTH/EXPOSED ROOT Jan 13, 2017 EXTRAC ERUPTED TOOTH/EXPOSED ROOT Jan 13, 2017 EXTRAC ERUPTED TOOTH/EXPOSED ROOT Jan 13, 2017 EXTRAC ERUPTED TOOTH/EXPOSED ROOT Jan 13, 2017 EXTRAC ERUPTED TOOTH/EXPOSED ROOT Jan 13, 2017 EXTRAC ERUPTED TOOTH/EXPOSED ROOT Jan 13, 2017 IMMUNIZATIONS No Known Immunizations MEDICAL (GENERAL) HISTORY Type Description Date Medical History PTSD Medical History anxiety Surgical History tubal ligation Surgical History cholecystectomy
--- OUTSIDE RECORDS SUMMARY | 2018-06-18 18:10 | XMS REPORT | Continuity of Care Document ---
Author Author [facility] Address Unknown Phone Unavailable Allergies Active Description Code Type Severity Reaction Onset Reported/Identified Relationship to Patient Clinical Status Yes naproxen [id number] Drug Allergy Mild vomiting 09/10/2011 Yes tramadol HCl [id number] Drug Allergy Mild vomiting 09/10/2011 Medications There is no data. Problems Date Dx Coded Attending Type Code Diagnosis Diagnosed By 05/13/2011 Ot 521.00 05/13/2011 Ot 525.9 09/10/2011 Ot 521.00 UNSPEC DENTAL CARIES 09/10/2011 Ot 525.9 DENTAL DISORDER NOS 11/17/2012 CELIA MONTIEL DO 008.8 GASTROENTERITIS, VIRAL 11/17/2012 CELIA MONTIEL DO 780.60 FEVER, UNSPECIFIED 11/17/2012 CELIA MONTIEL DO 787.01 NAUSEA WITH VOMITING 11/17/2012 008.8 GASTROENTERITIS, VIRAL 11/17/2012 780.60 FEVER, UNSPECIFIED 11/17/2012 787.01 NAUSEA WITH VOMITING 11/17/2012 CELIA MONTIEL DO 008.8 GASTROENTERITIS, VIRAL 11/17/2012 CELIA MONTIEL DO 780.60 FEVER, UNSPECIFIED 11/17/2012 CELIA MONTIEL DO 787.01 NAUSEA WITH VOMITING 11/26/2012 Ot 461.9 ACUTE SINUSITIS NOS 11/26/2012 Ot 780.60 FEVER, UNSPECIFIED 11/26/2012 Ot 786.2 COUGH 07/14/2013 DELFINO ROSADO MD Ot 824.2 FX LATERAL MALLEOLUS-CL 07/14/2013 DELFINO ROSADO MD Ot 959.7 LOWER LEG INJURY NOS 07/14/2013 DELFINO ROSADO MD Ot E000.8 OTHER EXTERNAL CAUSE STATUS 07/14/2013 DELFINO ROSADO MD Ot E030 UNSPECIFIED ACTIVITY 07/14/2013 DELFINO ROSADO MD Ot E849.[address] NOS 07/14/2013 DELFINO ROSADO MD Ot E884.9 FALL-1 LEVEL TO [facility] NEC 07/16/2013 CHARLOTTE PUGA Ot V15.59 PERSONAL HISTORY OF OTHER INJURY 07/16/2013 CHARLOTTE PUGA Ot V54.89 OTHER ORTHOPEDIC AFTERCARE 07/19/2013 824.2 FRACTURE OF LATERAL MALLEOLUS CLOSED 07/19/2013 CELIA MONTIEL DO 824.2 FRACTURE OF LATERAL MALLEOLUS CLOSED 10/29/2013 DELFINO ROSADO MD Ot 787.01 NAUSEA WITH VOMITING 10/29/2013 DELFINO ROSADO MD Ot 789.00 ABDOMINAL PAIN, UNSPECIFIED SITE 12/13/2013 CHARLOTTE PUGA Ot 451.9 THROMBOPHLEBITIS NOS 07/08/2014 MONICA TALLEY, NATHALY Payne Ot 300.00 ANXIETY STATE NOS 10/10/2015 KEVIN TALLEY, KATHY Mcclure Ot F17.210 NICOTINE DEPENDENCE, CIGARETTES, UNCOMPL 10/10/2015 KEVIN TALLEY, KATHY Mcclure Ot K52.9 NONINFECTIVE GASTROENTERITIS AND COLITIS 10/10/2015 KEVIN TALLEY, KATHY Mcclure Ot R10.11 RIGHT UPPER QUADRANT PAIN 12/29/2016 VIDHYA DO, AMY K Ot F17.210 NICOTINE DEPENDENCE, CIGARETTES, UNCOMPL 12/29/2016 VIDHYA , AMY K Ot K08.409 PARTIAL LOSS OF TEETH, UNSPECIFIED CAUSE 12/29/2016 VIDHYA , AMY K Ot R11.2 NAUSEA WITH VOMITING, UNSPECIFIED 12/29/2016 VIDHYA DO AMY K Ot Z98.890 OTHER SPECIFIED POSTPROCEDURAL STATES Procedures Code Description [place] [address] INFLUENZA A & B (IN-HOUSE) 11/17/2012 OrthopedRandy Siegel 07/26/2013 16886 XRAY ANKLE L COMP MIN, 3 VIEWS 08/30/2013 Results Test Result Range CBC With Differential/Platelet - 03/03/17 15:45 WBC 9.4 x10E3/uL 3.4-10.8 RBC 4.95 x10E6/uL 3.77-5.28 Hemoglobin 15.4 g/dL 11.1-15.9 Hematocrit 45.5 % 34.0-46.6 MCV 92 fL 79-97 MCH 31.1 pg 26.6-33.0 MCHC 33.8 g/dL 31.5-35.7 RDW 13.2 % 12.3-15.4 Platelets 306 x10E3/uL 150-379 Neutrophils 56 % Lymphs 39 % Monocytes 5 % Eos 0 % Basos 0 % Neutrophils (Absolute) 5.2 x10E3/uL 1.4-7.0 Lymphs (Absolute) 3.7 x10E3/uL 0.7-3.1 Monocytes(Absolute) 0.5 x10E3/uL 0.1-0.9 Eos (Absolute) 0.0 x10E3/uL 0.0-0.4 Baso (Absolute) 0.0 x10E3/uL 0.0-0.2 Immature Granulocytes 0 % Immature Grans (Abs) 0.0 x10E3/uL 0.0-0.1 Comp. Metabolic Panel (14) - 03/03/17 15:45 Glucose, Serum 87 mg/dL 65-99 BUN 7 mg/dL 6-20 Creatinine, Serum 0.82 mg/dL 0.57-1.00 eGFR If NonAfricn Am 92 mL/min/1.73 >59 eGFR If Africn Am 106 mL/min/1.73 >59 BUN/Creatinine Ratio 9 9-23 Sodium, Serum 142 mmol/L 134-144 Potassium, Serum 4.8 mmol/L 3.5-5.2 Chloride, Serum 99 mmol/L 96-106 Carbon Dioxide, Total 27 mmol/L 18-29 Calcium, Serum 10.4 mg/dL 8.7-10.2 Protein, Total, Serum 7.5 g/dL 6.0-8.5 Albumin, Serum 4.9 g/dL 3.5-5.5 Globulin, Total 2.6 g/dL 1.5-4.5 A/G Ratio 1.9 1.2-2.2 Bilirubin, Total 0.5 mg/dL 0.0-1.2 Alkaline Phosphatase, S 92 IU/L 39-117 AST (SGOT) 41 IU/L 0-40 ALT (SGPT) 20 IU/L 0-32 CULTURE, GENITAL - 05/16/18 17:54 CULTURE, GENITAL SEE NOTE NRG SUREPATH PAP RFX HPV mRNA E6/E7 - 05/16/18 17:54 CLINICAL INFORMATION: NRG LMP: NRG PREV. PAP: NRG PREV. BX: NRG SOURCE: Cervix NRG STATEMENT OF ADEQUACY: NRG INTERPRETATION/RESULT: NRG SUCKER MACHINE OPERATOR: NRG COMMENT NRG Encounters ACCT No. Visit Date/Time Discharge Status Pt. Type Provider Facility Loc./Unit Complaint [id number] 08/30/2013 15:15:00 08/30/2013 23:59:59 CLS Outpatient CELIA MONTIEL DO [id number] 11/17/2012 08:30:00 11/17/2012 23:59:59 CLS Outpatient CELIA MONTIEL DO [id number] 07/19/2013 15:06:00 Document Registration [id number] 03/04/2017 07:05:00 Document Registration [id number] 05/16/2018 16:00:00 05/16/2018 23:59:59 CLS Outpatient AVA SALOMON [facility] [id number] 05/16/2018 16:00:00 Document Registration [id number] 12/28/2016 18:15:00 12/28/2016 19:15:00 DIS Outpatient AMY KEE DO Via [facility] ER POST DENTAL OP/PAIN/ VOMITING [id number] 10/10/2015 16:35:00 10/10/2015 21:27:00 DIS Emergency KEVIN TALLEY, KATHY Mcclure [facility] ER ABD PAIN;NAUSEA;DIARRHEA [id number] 07/07/2014 22:07:00 07/08/2014 00:14:00 DIS Emergency NATHALY ANDERSON MD [facility] ER ANXIETY ATTACK [id number] 12/13/2013 18:30:00 12/13/2013 22:19:00 DIS Emergency CHARLOTTE PUGA [facility] ER POSS FOREIGN BODY [id number] 10/29/2013 10:59:00 10/29/2013 15:39:00 DIS Emergency DELFINO ROSADO MD [facility] ER VOMITING,DIARRHEA [id number] 07/16/2013 10:21:00 07/16/2013 12:55:00 DIS Emergency CHARLOTTE PUGA [facility] ER WRAP FOOT [id number] 07/14/2013 16:43:00 07/14/2013 18:55:00 DIS Emergency ALONZO TALLEY, DELFINO Abraham [facility] ER L ANKLE HURTS [id number] 11/26/2012 13:24:00 Document Registration [id number] 09/10/2011 15:33:00 Document Registration [id number] 05/13/2011 16:48:00 Document Registration
--- OUTSIDE RECORDS SUMMARY | 2018-06-18 18:10 | XMS REPORT ---
Author Author NARCISAADRIANA SONG Idris [facility] Address Unknown Care Team Providers Care Metrologist Name Role Phone ADRIANA ABBASI Unavailable PROBLEMS Type Condition ICD9-CM Code PYK48-JI Code Onset Dates Condition Status SNOMED Code Problem Weight loss R63.4 Active 191390483 Problem Gingivitis K05.10 Active 68312775 Problem Constipation, unspecified constipation type K59.00 Active 00550076 ALLERGIES No Information ENCOUNTERS Encounter Location Date Diagnosis [facility] [address] [id number] May, Dental examination Z01.20 [facility] [address] [address] Feb, Dental examination Z01.20 [facility] [address] [id number] Feb, Dental examination Z01.20 [facility] [address] [address] Feb, Dental examination Z01.20 [facility] [address] [address] Feb, Gingivitis K05.10 ; Weight loss R63.4 and Fragmented bone T14.8 [facility] [address] [id number] Jan, Dental examination Z01.20 [facility] [address] [id number] Jan, Dental examination Z01.20 [facility] [id number] [place] [phone] Jan, Constipation, unspecified constipation type K59.00 [facility] [id number] [id number] 16 Dec, 2016 Dental caries K02.9 [facility] [id number] [place] [address] [id number] Dec, [facility] [address] [id number] [place] [address] [phone] Dec, Dental examination Z01.20 [facility] [id number] [place] [address] [phone] Dec, Dental examination Z01.20 [facility] [address] [id number] [place] [address] [phone] Nov, Dental caries K02.9 [facility] [address] [id number] [place] [address] [phone] Nov, Dental examination Z01.20 [facility] [id number] [place] [address] [phone] Nov, Dental examination Z01.20 [facility] [id number] [place] [address] [phone] Nov, Dental caries K02.9 [facility] [address] [address] Sep, Dental caries K02.9 and Dental examination Z01.20 [facility] [id number] [place] [address] Sep, Dental examination Z01.20 [facility] [id number] [place] [address] Aug, Tooth pain K08.89 and Open fracture of tooth, initial encounter S02.5XXB [facility] [id number] [place] [phone] May, Rib pain on left side 786.50 [facility] [id number] [place] [phone] Feb, [facility] [address] [address] Feb, [facility] [address] [address] Aug, [facility] [address] [address] Jun, [facility] [address] [address] Jun, [facility] [address] [place] [address] Jun, [facility] [address] [place] [address] Jun, [facility] [id number] [place] [phone] Jan, [facility] [address] [address] Oct, [facility] [id number] [address] Oct, [facility] [address] [address] Oct, [facility] [address] [address] Oct, [facility] [address] [address] Jul, [facility] [address] [address] May, IMMUNIZATIONS No Known Immunizations SOCIAL HISTORY Never Assessed REASON FOR VISIT Refill request PLAN OF CARE VITAL SIGNS MEDICATIONS Medication Instructions Dosage Frequency Start Date End Date Duration Status Valium 5 MG Orally 2 TABLETS 1 HR BEFORE APPOINTMENT 2 TABLETS THE NIGHT BEFORE TREATMENT Dec, Active RESULTS No Results PROCEDURES No Known procedures INSTRUCTIONS MEDICATIONS ADMINISTERED No Known Medications MEDICAL (GENERAL) HISTORY Type Description Date Medical History PTSD Medical History anxiety Surgical History tubal ligation Surgical History cholecystectomy
--- OUTSIDE RECORDS SUMMARY | 2018-06-18 18:10 | XMS REPORT ---
Author Author NARCISAADRIANA SONG Idris [facility] Address Unknown Care Team Providers Care Metal Grader Name Role Phone ADRIANA ABBASI Unavailable PROBLEMS Type Condition ICD9-CM Code MMD30-TV Code Onset Dates Condition Status SNOMED Code Problem Weight loss R63.4 Active 429408699 Problem Gingivitis K05.10 Active 68273073 Problem Constipation, unspecified constipation type K59.00 Active 08205471 ALLERGIES No Information ENCOUNTERS Encounter Location Date Diagnosis [facility] [address] [id number] May, Dental examination Z01.20 [facility] [address] [address] Feb, Dental examination Z01.20 [facility] [address] [id number] Feb, Dental examination Z01.20 [facility] [address] [address] Feb, Dental examination Z01.20 [facility] [address] [address] Feb, Gingivitis K05.10 ; Weight loss R63.4 and Fragmented bone T14.8 [facility] [address] [id number] Jan, Dental examination Z01.20 [facility] [address] [id number] Jan, Dental examination Z01.20 [facility] [id number] [place] [address] Jan, Constipation, unspecified constipation type K59.00 [facility] [id number] [id number] 16 Dec, 2016 Dental caries K02.9 [facility] [id number] [place] [id number] Dec, [facility] [address] [id number] [place] [address] [id number] Dec, Dental examination Z01.20 [facility] [address] [id number] [place] [id number] Dec, Dental examination Z01.20 [facility] [id number] [place] [address] [phone] Nov, Dental caries K02.9 [facility] [id number] [place] [address] [phone] Nov, Dental examination Z01.20 [facility] [id number] [place] [address] [id number] Nov, Dental examination Z01.20 [facility] [address] [id number] [place] [address] [id number] Nov, Dental caries K02.9 [facility] [address] [address] Sep, Dental caries K02.9 and Dental examination Z01.20 [facility] [id number] [place] [address] Sep, Dental examination Z01.20 [facility] [id number] [place] [address] Aug, Tooth pain K08.89 and Open fracture of tooth, initial encounter S02.5XXB [facility] [id number] [place] [address] May, Rib pain on left side 786.50 [facility] [id number] [place] [address] Feb, [facility] [address] [address] Feb, [facility] [address] [place] [address] Aug, [facility] [address], [place] [address] Jun, [facility] [address], [place] [address] Jun, [facility] [address], [place] [address] Jun, [facility] [address], [place] [address] Jun, [facility] [address], [place] [address] Jan, [facility] [address], [place] [address] Oct, [facility] [address] [address] Oct, [facility] [address] [address] Oct, [facility] [address] [id number] Oct, [facility] [id number] [address] Jul, [facility] [id number], [place] [address] May, IMMUNIZATIONS No Known Immunizations SOCIAL HISTORY Never Assessed REASON FOR VISIT IMPRESSIONS PLAN OF CARE VITAL SIGNS MEDICATIONS Unknown Medications RESULTS No Results PROCEDURES Procedure Date Ordered Result Body Site Billing Notes on claim June 17, 2017 INSTRUCTIONS MEDICATIONS ADMINISTERED No Known Medications MEDICAL (GENERAL) HISTORY Type Description Date Medical History PTSD Medical History anxiety Surgical History tubal ligation Surgical History cholecystectomy
[2018-06-18] MEDS ORDERED: RT-ALBUTEROL/IPRATROPIUM 3 ML (DUONEB) VIAL INH ONE (18:45)
--- NOTE | 2018-06-18 19:02 | Diagnostic Imaging Report ---
INDICATION: Cough and congestion. COMPARISON: 11/26/2012. EXAMINATION: Frontal and lateral views of the chest were obtained. FINDINGS: Clear lungs, bilaterally. The heart is normal. There is no pneumothorax. The osseous structures are normal. IMPRESSION: Negative chest. Dictated by: Dictated on workstation # [id number]
[2018-06-18 19:16] LABS: BASOPHILS % (AUTO) 0 % (0-10); EOSINOPHILS # (AUTO) 0.1 10^3/uL (0.0-0.3); EOSINOPHILS % (AUTO) 1 % (0-10); HEMATOCRIT 45 % (35-52); HEMOGLOBIN 15.8 G/DL (11.5-16.0); LYMPHOCYTES # (AUTO) 2.1 X 10^3 (1.0-4.0); LYMPHOCYTES % (AUTO) 22 % (12-44); MEAN CORPUSCULAR HEMOGLOBIN 32 PG (25-34); MEAN CORPUSCULAR HGB CONC 35 G/DL (32-36); MEAN CORPUSCULAR VOLUME 93 FL (80-99); MEAN PLATELET VOLUME 10.5 FL (7.4-10.4); MONOCYTES # (AUTO) 0.8 X 10^3 (0.0-1.0); MONOCYTES % (AUTO) 8 % (0-12); NEUTROPHILS # (AUTO) 6.7 X 10^3 (1.8-7.8); NEUTROPHILS % (AUTO) 70 % (42-75); PLATELET COUNT 214 10^3/uL (130-400); RED BLOOD COUNT 4.87 10^6/uL (4.35-5.85); RED CELL DISTRIBUTION WIDTH 14.1 % (10.0-14.5); WHITE BLOOD COUNT 9.6 10^3/uL (4.3-11.0)
[2018-06-18 19:36] LABS: ALANINE AMINOTRANSFERASE < 6 U/L (0-55); ALBUMIN 4.4 GM/DL (3.2-4.5); ALKALINE PHOSPHATASE 118 U/L (40-136); BILIRUBIN,TOTAL 0.8 MG/DL (0.1-1.0); BUN/CREATININE RATIO 5; CALCIUM 9.7 MG/DL (8.5-10.1); CARBON DIOXIDE 25 MMOL/L (21-32); CHLORIDE 103 MMOL/L (98-107); CREATININE SERUM 0.73 MG/DL (0.60-1.30); GFR ESTIMATED > 60; GLUCOSE 96 MG/DL (70-105); POTASSIUM 3.9 MMOL/L (3.6-5.0); SODIUM 139 MMOL/L (135-145); TOTAL PROTEIN 7.3 GM/DL (6.4-8.2)
[2018-06-18] MEDS ORDERED: AZIT250T PO (20:01)
[2018-06-18] MEDS ORDERED: METH4TAB PO (20:01)
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
[2018-06-18 20:05] VITALS: BP 129/87
== END 2018-06-18 20:20 | disposition home or self-care (01) ==
LOC: EDUNIT# 17:14 → ER 17:15
DX: J06.9 Acute upper respiratory infection, unspecified (principal); F41.9 Anxiety disorder, unspecified; F32.9 Major depressive disorder, single episode, unspecified; F43.10 Post-traumatic stress disorder, unspecified; F12.10 Cannabis abuse, uncomplicated; F17.210 Nicotine dependence, cigarettes, uncomplicated; Z98.51 Tubal ligation status; Z88.6 Allergy status to analgesic agent; Z88.8 Allergy status to other drugs, medicaments and biological substances; Z79.52 Long term (current) use of systemic steroids
CPT/HCPCS: 36415; 71046; 80053; 85025; 94640

== ENCOUNTER 2019-06-26 16:40 | Emergency (ER) | payer SELFPAY ==
[~2019-06-26] VITALS: Ht 162.6 cm; Wt 47.6 kg
[~2019-06-26 16:40] MED LIST changes: +AZIT250T PO; +METH4TAB PO
[2019-06-26] MEDS ORDERED: LACTATED RINGERS 1,000 ML IV STA (17:36)
[2019-06-26 17:44] LABS: BASOPHILS % (AUTO) 0 % (0-10); EOSINOPHILS % (AUTO) 0 % (0-10); HEMATOCRIT 49 % (35-52); HEMOGLOBIN 16.8 G/DL (11.5-16.0); LYMPHOCYTES # (AUTO) 3.1 X 10^3 (1.0-4.0); LYMPHOCYTES % (AUTO) 27 % (12-44); MEAN CORPUSCULAR HEMOGLOBIN 32 PG (25-34); MEAN CORPUSCULAR HGB CONC 34 G/DL (32-36); MEAN CORPUSCULAR VOLUME 93 FL (80-99); MONOCYTES # (AUTO) 0.6 X 10^3 (0.0-1.0); MONOCYTES % (AUTO) 5 % (0-12); NEUTROPHILS # (AUTO) 7.6 X 10^3 (1.8-7.8); NEUTROPHILS % (AUTO) 67 % (42-75); PLATELET COUNT 274 10^3/uL (130-400); RED CELL DISTRIBUTION WIDTH 14.3 % (10.0-14.5); WHITE BLOOD COUNT 11.4 10^3/uL (4.3-11.0)
[2019-06-26] MEDS ORDERED: ONDANSETRON 4 MG/2 ML (SDV) Z0FRAN IVP ONE (17:45)
[2019-06-26 17:56] LABS: ALANINE AMINOTRANSFERASE < 6 U/L (0-55); ALBUMIN 4.5 GM/DL (3.2-4.5); ALKALINE PHOSPHATASE 97 U/L (40-136); BILIRUBIN,TOTAL 0.9 MG/DL (0.1-1.0); BUN/CREATININE RATIO 8; CARBON DIOXIDE 23 MMOL/L (21-32); CHLORIDE 105 MMOL/L (98-107); GFR ESTIMATED > 60; GLUCOSE 88 MG/DL (70-105); POTASSIUM 4.1 MMOL/L (3.6-5.0); SODIUM 141 MMOL/L (135-145); TOTAL PROTEIN 7.6 GM/DL (6.4-8.2)
[2019-06-26] MEDS ORDERED: KETOROLAC 30 MG/ML VIAL IVP STA (17:58)
[2019-06-26] MEDS ORDERED: FAMOTIDINE 20MG/2ML IV (PEPCID) IV STA (17:58)
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
[2019-06-26 19:30] LABS: BILIRUBIN,URINE NEGATIVE (NEGATIVE); CLARITY,URINE CLEAR; COLOR,URINE YELLOW; GLUCOSE, URINE (UA) NEGATIVE (NEGATIVE); KETONES,URINE 3+ (NEGATIVE); LEUKOCYTE ESTERASE ,URINE NEGATIVE (NEGATIVE); NITRITE,URINE NEGATIVE (NEGATIVE); PH,URINE 6.5 (5-9); PROTEIN,URINE 1+ (NEGATIVE); UROBILINOGEN,URINE NORMAL (NORMAL)
[2019-06-26 19:40] LABS: BACTERIA,URINE TRACE /HPF; RBC,URINE 0-2 /HPF
[2019-06-26 19:45] VITALS: BP 132/83
== END 2019-06-26 19:45 | disposition home or self-care (01) ==
LOC: EDUNIT# 16:40 → ER 16:41
DX: E86.0 Dehydration (principal); F41.9 Anxiety disorder, unspecified; F32.9 Major depressive disorder, single episode, unspecified; F43.10 Post-traumatic stress disorder, unspecified; F12.10 Cannabis abuse, uncomplicated; F17.210 Nicotine dependence, cigarettes, uncomplicated; Z98.51 Tubal ligation status; Z88.5 Allergy status to narcotic agent; Z88.6 Allergy status to analgesic agent
CPT/HCPCS: 36415; 80053; 81000; 85025; 96361; 96374; 96375